=== PATIENT | male | born 1965 | race Caucasian/White ===

== ENCOUNTER 2016-07-18 14:34 | Emergency (ER) | END 2016-07-18 16:10 | disposition left against medical advice (07) | LOC: UCCORT 14:34 | DX: M25.511 Pain in right shoulder (principal); Z53.21 Procedure and treatment not carried out due to patient leaving prior to being seen by health care provider ==

== ENCOUNTER 2016-07-20 08:42 | Emergency (ER) | payer BC ==
[2016-07-20 10:16] VITALS: BP 138/87
[2016-07-20] MEDS ORDERED: Ketorolac INJ* 60 MG/2 ML VIAL IM ONE (10:57)
--- NOTE | 2016-07-20 11:03 | UC ---
Upper Extremity HPI - HPI Summary HPI Summary: Patient has previous injury to right shoulder aggrevated a week ago, has trouble lifing and holding his arm out. - History of Current Complaint Chief Complaint: UCUpperExtremity Stated Complaint: RIGHT SHOULDER PAIN Time Seen by Provider: 07/20/16 10:50 Hx Obtained From: Patient ?: No Onset/Duration: Sudden Onset, Lasting Days Severity Initially: Moderate Severity Currently: Moderate Pain Intensity: 5 Pain Scale Used: 0-10 Numeric Location Of Pain: Is Discrete @ - upper rim of shoulder and "deep inside" Character: Sharp, Aching Aggravating Factor(s): Movement, Extension, Internal/External Rotation, Abduction Alleviating Factor(s): Nothing Associated Signs And Symptoms: Positive: Negative Related History: Dominant Hand Right - Risk Factors Non-Orthopedic Risk Factor: Negative DVT Risk Factors: Negative Septic Arthritis Risk Factor: Negative - Allergies/Home Medications Allergies/Adverse Reactions: Allergies Allergy/AdvReac Type Severity Reaction Status Date / Time No Known Allergies Allergy Verified 07/20/16 10:10 Home Medications: Home Medications Ivfjmnvpqbevi-[id number]-[id number] [Vicks Dayquil/Nyquil Gloria] 30 ml PO Q6H PRN 07/05 [History Confirmed 07/20/16] PMH/Surg Hx/FS Hx/Imm Hx Previously Healthy: Yes - Surgical History Surgical History: Yes Surgery Procedure, Year, and Place: Bilateral Lens Replacement, 2004 - Family History Known Family History: Negative: Cardiac Disease, Hypertension - Social History Alcohol Use: Weekly Substance Use Type: Marijuana Smoking Status (MU): Heavy Every Day Tobacco Smoker Type: Cigarettes Amount Used/How Often: 1/2 PPD Length of Time of Smoking/Using Tobacco: 35 Years Have You Smoked in the Last Year: Yes Household Exposure Type: Cigarettes - Immunization History Most Recent Influenza Vaccination: Not the 2016/2016 Season Review of Systems Constitutional: Negative Skin: Negative Eyes: Negative ENT: Negative Respiratory: Negative Cardiovascular: Negative Gastrointestinal: Negative Genitourinary: Negative Motor: Negative Neurovascular: Negative Musculoskeletal: Arthralgia, Decreased ROM, Myalgia Neurological: Negative Psychological: Negative All Other Systems Reviewed And Are Negative: Yes Physical Exam Triage Information Reviewed: Yes Appearance: Well-Appearing, Well-Nourished, Pain Distress Vital Signs: Initial Vital Signs Temp 98.3 F 07/20/16 10:07 Pulse 66 07/20/16 10:07 Resp 16 07/20/16 10:07 BP 138/87 07/20/16 10:07 Pulse Ox 100 07/20/16 10:07 Vital Signs Reviewed: Yes Eye Exam: Normal Eyes: Positive: Conjunctiva Clear ENT Exam: Normal ENT: Positive: Hearing grossly normal, Pharynx normal, TMs normal Dental Exam: Normal Neck exam: Normal Neck: Positive: Supple, Nontender, No Lymphadenopathy Respiratory Exam: Normal Respiratory: Positive: Chest non-tender, Lungs clear, Normal breath sounds Cardiovascular Exam: Normal Cardiovascular: Positive: RRR, No Murmur, Pulses Normal Abdominal Exam: Normal Abdomen Description: Positive: Nontender, No Organomegaly Bowel Sounds: Positive: Present Musculoskeletal Exam: Normal Musculoskeletal: Positive: ROM Intact, No Edema, Strength Limited @ - right shoulder abduction and extension Neurological Exam: Normal Neurological: Positive: Alert, Muscle Tone Normal Psychological Exam: Normal Skin Exam: Normal Upper Extremity Course/Dx - Course Course Of Treatment: hx obtained, exam performed, meds reviewed. xray obtained revelaed joint effusion and OA changes, conuslted with dr holman, medications prescribed and RICE education provided, medications prescribed. - Differential Dx/Diagnosis Differential Diagnosis/HQI/PQRI: Fracture (Closed), Strain, Sprain Provider Diagnoses: OA. shoulder effusion. shoulder pain Discharge - Discharge Plan Condition: Stable Disposition: HOME Prescriptions: Meloxicam(NF) [Mobic(NF)] 15 mg PO DAILY #14 tab Patient Education Materials: RICE Therapy (ED), Shoulder Pain (ED) Referrals: No Primary Care Phys,NOPCP [Primary Care Provider] - Ko Bond MD [Medical Doctor] - Additional Instructions: REst and Icce the shoulder. Avoid painful motions Follow up with Dr Bond at your convienience
--- NOTE | 2016-07-20 11:13 | RAD ---
INDICATION: Right shoulder pain for one week COMPARISON: None TECHNIQUE: Routine frontal and Y views were obtained. FINDINGS: There is minor a.c. osteoarthritis and there is minor humeral osseous rise with lipping of the inferior glenoid. There is minor widening of the glenohumeral space which may reflect an effusion. No additional findings IMPRESSION: MINOR OSTEOARTHRITIS. POSSIBLE JOINT EFFUSION.
== END 2016-07-20 11:29 | disposition home or self-care (01) ==
LOC: UCCORT 08:42
DX: M25.511 Pain in right shoulder (principal); M25.411 Effusion, right shoulder; M19.011 Primary osteoarthritis, right shoulder; F17.210 Nicotine dependence, cigarettes, uncomplicated
CPT/HCPCS: 96372; 99213; G0463; J1885